=== PATIENT | female | born 1995 | race American Indian/Alaskan Native ===

== ENCOUNTER 2022-03-11 13:08 | Emergency (ER) | payer SELFPAY ==
[2022-03-11] MEDS ORDERED: ERYTHROMYCIN 5 MG/1 GM OPHTH OINT OU SCH (15:14)
--- NOTE | 2022-03-11 15:34 | Emergency Department Report ---
ED Eye Problem HPI - General Chief complaint: Eye Problems Stated complaint: SWOLLEN EYE Time Seen by Provider: 03/11/22 15:12 Source: patient Mode of arrival: Ambulatory Limitations: No Limitations - History of Present Illness Initial comments: 26 yo comes to ER p a fly hit her in the eye yesterday around 5pm. She has had mild eye swelling since. no vision change. does not wear contacts. no tearing. no fever/ chills. -: Sudden Onset Description: sudden Location: right eye Place: home If Injury: other Eye Symptoms: other Severity: mild Associated Symptoms: none Treatments Prior to Arrival: irrigated eye - Related Data Patient Tetanus UTD: Yes Previous Rx's Medication Instructions Recorded Last Taken Type Erythromycin [Erythromycin Ophth 0.5 inch OS Q4H #5 day 03/11/22 Unknown Rx Oint] Allergies Allergy/AdvReac Type Severity Reaction Status Date / Time No Known Allergies Allergy Verified 03/11/22 15:36 ED Review of Systems ROS: Stated complaint: SWOLLEN EYE Other details as noted in HPI Comment: All other systems reviewed and negative ED Past Medical Hx - Past Medical History Previous Medical History?: No - Surgical History Past Surgical History?: No - Family History Family history: no significant - Social History Smoking Status: Never Smoker Substance Use Type: None - Medications Home Medications: Home Medications Medication Instructions Recorded Confirmed Last Taken Type Erythromycin [Erythromycin Ophth 0.5 inch OS Q4H #5 day 03/11/22 Unknown Rx Oint] ED Physical Exam - General Limitations: No Limitations General appearance: alert, in no apparent distress - Head Head exam: Present: atraumatic, normocephalic - Eye Eye exam: Present: normal appearance - ENT ENT exam: Present: mucous membranes moist - Neck Neck exam: Present: normal inspection - Respiratory Respiratory exam: Present: normal lung sounds bilaterally. Absent: respiratory distress - Cardiovascular Cardiovascular Exam: Present: regular rate, normal rhythm. Absent: systolic murmur, diastolic murmur, rubs, gallop - GI/Abdominal GI/Abdominal exam: Present: soft, normal bowel sounds - Extremities Exam Extremities exam: Present: normal inspection - Back Exam Back exam: Present: normal inspection - Neurological Exam Neurological exam: Present: alert, oriented X3 - Psychiatric Psychiatric exam: Present: normal affect, normal mood - Skin Skin exam: Present: warm, dry, intact, normal color. Absent: rash ED Course Vital Signs 03/11/22 14:04 Temperature 98.9 F Pulse Rate 65 Respiratory 18 Rate Blood Pressure 111/62 O2 Sat by Pulse 100 Oximetry - Eye Procedure Alcaine Drops Administered: Yes Cyclogel 2 Drops Administered: right eye Antibiotic Oinment/Drps Admin: right eye Progress: tolerated well ED Medical Decision Making - Medical Decision Making Vital Signs (72 hours) 03/11/22 14:04 Temperature 98.9 F Pulse Rate 65 Respiratory 18 Rate Blood Pressure 111/62 O2 Sat by Pulse 100 Oximetry does not wear contacts globe intact eoms intact perrl no fb no abrasion/ucleration on staining dc home with dc plan of care including diet, meds, activity and follow up- she verbalizes understanding of plan of care - Differential Diagnosis abrasion/conjunctivits/fb Critical care attestation.: If time is entered above; I have spent that time in minutes in the direct care of this critically ill patient, excluding procedure time. ED Disposition Clinical Impression: Eye irritation Disposition: 01 HOME / SELF CARE / HOMELESS Is pt being admited?: No Does the pt Need Aspirin: No Condition: Stable Additional Instructions: med as ordered today if by Friday you are still having problems- see eye MD referral below Prescriptions: Erythromycin [Erythromycin Ophth Oint] 0.5 inch OS Q4H #5 day Referrals: VIC CAO MD [Staff Physician] - 3-5 Days Forms: Work/School Release Form(ED) Time of Disposition: 15:33
[2022-03-11 17:52] VITALS: BP 109/60
== END 2022-03-11 17:51 | disposition home or self-care (01) ==
LOC: ED 13:08
DX: H53.141 Visual discomfort, right eye (principal)
CPT/HCPCS: 99282